=== PATIENT | female | born 1965 | race Caucasian/White ===

== ENCOUNTER 2018-09-04 11:45 | Inpatient (IN) | payer MEDICAID ==
[~2018-09-04] VITALS: Ht 160 cm; Wt 105.2 kg
[~2018-09-04 11:45] MED LIST: ATEN50TA2 PO; HYDR25TA32 PO
[2018-09-04 11:48] VITALS: BP 176/101
--- NOTE | 2018-09-04 12:13 | NUR ---
PT BIB SELF TO THE ED WITH THE CHIEF C/O HEADACHE AND DIZZINESS FOR A WEEK. MOT TAKING ANY MEDS FOR HEADACHE. REPOSTS NAUSEA. DENIES VOMITING OR DIARRHEA. ELEVATED BP NOTED. PT HAS NOT TAKEN BP MEDS TODAY. STATES HEADACHE OF 5/10 AT THIS TIME. BREATHING NORMALLY. DENIES ANY OTHER PROBLEM AT THIS TIME. ER MD AWARE. HX OF HTN, DM, DEPRESSION. TX METOPROLOL, ESCITALOPRAM, ZOLPIDEM, LISINOPRIL.
[2018-09-04] MEDS ORDERED: NACL 0.9% 1,000 ML IV ONE (12:45)
[2018-09-04] MEDS ORDERED: ONDANSETRON 4 MG/2 ML VIAL IVP ONE (12:45)
--- NOTE | 2018-09-04 12:56 | NUR ---
PT TAKEN TO CT.
[2018-09-04 13:19] LABS: HEMATOCRIT 39.1 % (36-48); HEMOGLOBIN 13.4 g/dL (12.0-16.0); MEAN CORPUSCULAR HEMOGLOBIN 30 pg (27-31); MEAN CORPUSCULAR HGB CONC 34 g/dL (33-37); PLATELET COUNT (AUTO) 165 K/uL (140-450); RED BLOOD CELL COUNT(AUTO) 4.55 MIL/uL (4.20-5.40); RED CELL DISTRIBUTION WIDTH 12.3 % (11.6-13.7); WHITE BLOOD COUNT (AUTO) 8.2 K/uL (4.8-10.8)
[2018-09-04 13:21] LABS: APPEARANCE,URINE CLEAR (CLEAR); BILIRUBIN,URINE NEGATIVE (NEGATIVE); BLOOD, URINE 2+ (NEGATIVE); COLOR,URINE YELLOW (YELLOW); LEUKOCYTE ESTERASE ,URINE NEGATIVE (NEGATIVE); NITRITE, URINE NEGATIVE (NEGATIVE); UGLUCOSE 3+ (NEGATIVE)
[2018-09-04 13:27] LABS: ALBUMIN 3.7 g/dL (3.4-5.0); ANION GAP 13.7 (8-16); CARBON DIOXIDE 25.4 mmol/L (21-32); CHOL/HDL RATIO 9.5 (1-4.5); CREATININE 0.9 mg/dL (0.6-1.3); POTASSIUM 4.1 mmol/L (3.5-5.1); TOTAL BILIRUBIN 0.5 mg/dL (0.0-1.0)
[2018-09-04 13:36] LABS: RBC,URINE 11-20 (MOD) /HPF (0-5); WBC,URINE 0-5 /HPF (0-5)
[2018-09-04] MEDS ORDERED: INSULIN REGULAR, HUMAN 100 UNIT/ML VIAL IVP ONE (14:15)
[2018-09-04 14:35] LABS: BASOPHILS # (AUTO) 0.1 K/uL (0.00-0.22); BASOPHILS % (AUTO) 0.7 % (0.0-2.0); EOSINOPHILS # (AUTO) 0.1 K/uL (0-0.4); LYMPHOCYTES # (AUTO) 1.8 K/uL (2.5-16.5); MONOCYTES # (AUTO) 0.4 K/uL (0.8-1.0); NEUTROPHILS # (AUTO) 5.8 K/uL (1.8-7.7); NEUTROPHILS % (AUTO) 71.3 % (42.2-75.2)
[2018-09-04] MEDS ORDERED: ONDANSETRON 4 MG/2 ML VIAL IM/IVP PRN (15:20)
[2018-09-04] MEDS ORDERED: DOCUSATE SODIUM 100 MG GELCAP PO PRN (15:20)
[2018-09-04] MEDS ORDERED: ACETAMINOPHEN 325 MG TAB PO PRN (15:20)
--- NOTE | 2018-09-04 15:35 | NUR ---
REVIWED ABG SAMPLE REPORT WITH DR. NASRA RINCON NO NEW ORDERS
[2018-09-04] MEDS: NACL 0.9% 1,000 ML IV SCH ×2 (15:57→21:56)
[2018-09-04] MEDS ORDERED: ESCI10TA PO (16:04)
[2018-09-04] MEDS ORDERED: LISI-420 PO (16:04)
[2018-09-04] MEDS ORDERED: ZOLP5TAB1 PO (16:04)
[2018-09-04] MEDS ORDERED: METO25TA PO (16:04)
[2018-09-04] MEDS ORDERED: DEXTROSE 50% 50 ML SYR IVP PRN (16:35)
[2018-09-04] MEDS ORDERED: NACL 0.9% 1,500 ML IV ONE (16:40)
[2018-09-04] MEDS ORDERED: MECLIZINE 25 MG TAB PO PRN (16:50)
[2018-09-04 16:57] LABS: PROTHROMBIN TIME 9.6 secs (10.8-13.4)
--- NOTE | 2018-09-04 16:59 | NUR ---
RECEIVED PT FROM ED FROM XOCHITL MARTINEZ. PT ARRIVED IN [facility] WITH TRANSPORT MONITOR. IN NO RESPIRATORY DISTRESS, SYMMETRICAL BREATHING, SKIN COLOR RIGHT FOR ETHNICITY. SKIN DRY, CLEAN, INTACT, PINK. PT WAS ABLE TO AMBULATE FROM [facility] IN [place] TO BED WITH NO PROBLEM. LAST BLOOD SUGAR WAS AT 1524, WAS 382, JUAN SAYS THEY GAVE 8 UNITS OF REGULAR INSULIN VIA IV. PT A/OX4. IV ON RIGHT AC 20G RUNNING AT 100ML/HR. ASKED PT IF SHE HAS TAKEN INSULIN BEFORE, SHE SAYS THAT SHE HAS NOT. PT STATES SHE RECENTLY FOUND OUT THAT SHE HAS DIABETES. PT STATES SHE HAS A FAMILY HX OF DIABETES. SIGN POSTED OUTSIDE DOOR "NPO AFTER MIDNIGHT EXCEPT MEDS". DAUGHTER AT BEDSIDE WITH PT. IV RIGHT AC 20G. TELE MONITOR ON. SINUS RHYTHM, CALL LIGHT WITHIN REACH, WILL CONTINUE TO MONITOR
[2018-09-04 17:00] LABS: BARBITURATE, URINE NEG. ng/ml (NEG <=200); BENZODIAZEPINE, URINE NEG. ng/mL (NEG <=200); CANNABINOID, URINE NEG. ng/mL (NEG <=50); COCAINE, URINE NEG. ng/mL (NEG <=300); OPIATE, URINE NEG. ng/mL (NEG <=2000); PHENCYCLIDINE SCREEN,URINE NEG. ng/mL (NEG <=25)
[2018-09-04] MEDS: metFORMIN 500 MG TAB PO SCH (17:00)
--- NOTE | 2018-09-04 17:00 | NUR ---
Patient will admitted to care of Dr. Cordero . Admited to tele unit. Transferred to the room 119A via rlittle suamico on stable condition. Belongings list completed. Report to XOCHITL Acuna.
[2018-09-04] MEDS ORDERED: ZOLPIDEM 5 MG TAB PO PRN (17:05)
[2018-09-04 17:09] LABS: FREE T4 (FREE THYROXINE) 1.23 ng/dL (0.76-1.46); MAGNESIUM 2.1 mg/dL (1.8-2.4); PHOSPHORUS 3.6 mg/dL (2.5-4.9); THYROID STIMULATING HORMONE 0.59 uIU/mL (0.34-3.74)
[2018-09-04] MEDS ORDERED: METOPROLOL 50 MG TAB PO SCH (17:30)
[2018-09-04 17:31] VITALS: BP 160/80
--- NOTE | 2018-09-04 17:50 | NUR ---
CALLED DR RINCON TO CONFIRMED THAT PT RECEIVED IVF NS 1L BOLUS IN ER, IF DR STILL WANTS TO GIVE 1.[address] RINCON SAID YES, TO GIVE.
--- NOTE | 2018-09-04 19:25 | NUR ---
RECEIVED REPORT FROM AM SHIFT FOR CONTINUITY OF CARE, PT IN STABLE CONDITION.
--- NOTE | 2018-09-04 19:25 | NUR ---
ENDORSED PT TO [employer] RN. PT IN STABLE CONDITION.
[2018-09-04 20:00] VITALS: BP 127/83
[2018-09-04] MEDS ORDERED: INSULIN LANTUS 100 UNITS/ML 10 ML VIAL SUBQ SCH (21:00)
--- NOTE | 2018-09-04 21:00 | NUR ---
PT IN BED AOX4 AND IS [place] CITIZEN SPEAKING. PT IN LOW BED WITH SIDE RAILS UP X2 AND HOB UP 45%. PT HAD NO C/O OF PAIN OR DISTRESS NOTED. IV SITE RAC 20G INTACT AND FLUSHED PATENT. N/S BOLUS FINISHED AND PT STARTED N/S FLUIDS AT 200MLS/HR. V/S FOLLOWS T 98.4 P 64 R 18 B/P 127/83 02 95% ON ROOM AIR. PT GIVEN LIPITOR FOR INCREASED CHOLESTEROL, SCHEDULED WELL HEPARIN FOR DVT PREVENTION. PT F/S IS 338 AND WAS GIVEN 8 UNITS OF HUMALOG COVERAGE AND ORDERED LANTUS AT 20 UNITS. MEDICATION INFORMATION AND AND EDUCATION PROVIDED THROUGH SEPTIC TANK CLEANER. PT VERBALIZED UNDERSTANDING.
[2018-09-04] MEDS: BLOOD GLUCOSE MONITORING 1 DEV DEV FS SCH (21:17)
[2018-09-04] MEDS: ATORVASTATIN 20 MG TAB PO SCH (21:18)
[2018-09-04] MEDS: INSULIN LISPRO SLIDING SCALE 100 UNITS/ML VIAL SUBQ PRN (21:39)
[2018-09-05] VITALS: BP 156/70
[2018-09-05] MEDS: HYDROcodone/APAP 7.5/325 MG 1 TAB PO PRN ×4 (00:45→20:22)
--- NOTE | 2018-09-05 00:45 | NUR ---
PT IN BED SHE IS RESTING WITH EYES CLOSED BUT AROUSABLE TO NAME. PT C/O OF HEADACHE 10/23, GIVEN PO/PRN NORCO. PT ALSO C/O OF INSOMNIA AND REQUESTED A PILL FOR SLEEPING. PT GIVEN 5MG AMBIEN PO/PRN FOR SLEEP AID. WILL CONTINUE TO MONITOR PT FOR PAIN AND SLEEPLESSNESS. IV SITE INTACT AND RUNNING N/S ORDERED. ALL REQUESTED NEEDS ATTENDED AND CALL HARE IN REACH.
--- NOTE | 2018-09-05 02:20 | NUR ---
PT IN BED ASLEEP NO S/S OF PAIN OR DISTRESS NOTED. N/S RUNNING AT 200MLS AN HOUR ORDERED.
[2018-09-05] MEDS: NACL 0.9% 1,000 ML IV SCH ×4 (03:43→21:03)
[2018-09-05 04:00] VITALS: BP 131/67
--- NOTE | 2018-09-05 05:20 | NUR ---
PT IN BED RESTING WITH EYES CLOSED BUT AROUSABLE TO NAME. PT C/O HEADACHE AND WAS GIVEN PO/PRN NORCO, WILL MONITOR FOR EFFECT. V/S FOLLOWS T 97.8 P 62 R 18 B/P 131/67 02 94% ON ROOM AIR.
[2018-09-05 06:13] LABS: T4 (THYROXINE) 7.8 ug/dL (4.5-12.0)
[2018-09-05 06:24] LABS: ANION GAP 8.3 (8-16); CARBON DIOXIDE 28.3 mmol/L (21-32); CREATININE 0.7 mg/dL (0.6-1.3); POTASSIUM 3.6 mmol/L (3.5-5.1)
[2018-09-05] MEDS: BLOOD GLUCOSE MONITORING 1 DEV DEV FS SCH ×4 (06:24→20:25)
[2018-09-05] MEDS ORDERED: NACL 0.9% 1,000 ML IV ONE (06:25)
[2018-09-05] MEDS ORDERED: INSULIN LANTUS 100 UNITS/ML 10 ML VIAL SUBQ SCH ×4 (06:30→21:00)
[2018-09-05] MEDS: INSULIN LISPRO SLIDING SCALE 100 UNITS/ML VIAL SUBQ PRN ×4 (06:33→20:32)
[2018-09-05 06:38] LABS: BASOPHILS % (AUTO) 0.3 % (0.0-2.0); EOSINOPHILS # (AUTO) 0.2 K/uL (0-0.4); EOSINOPHILS % (AUTO) 2.5 % (0.0-4.0); HEMATOCRIT 35.7 % (36-48); HEMOGLOBIN 12.2 g/dL (12.0-16.0); LYMPHOCYTES # (AUTO) 2.2 K/uL (2.5-16.5); LYMPHOCYTES % (AUTO) 33.3 % (20.5-51.1); MEAN CORPUSCULAR HEMOGLOBIN 30 pg (27-31); MEAN CORPUSCULAR HGB CONC 34 g/dL (33-37); MEAN CORPUSCULAR VOLUME 86.6 fL (80-94); MONOCYTES # (AUTO) 0.4 K/uL (0.8-1.0); MONOCYTES % (AUTO) 5.7 % (1.7-9.3); NEUTROPHILS # (AUTO) 3.8 K/uL (1.8-7.7); NEUTROPHILS % (AUTO) 58.2 % (42.2-75.2); PLATELET COUNT (AUTO) 159 K/uL (140-450); RED BLOOD CELL COUNT(AUTO) 4.12 MIL/uL (4.20-5.40); RED CELL DISTRIBUTION WIDTH 12.5 % (11.6-13.7); WHITE BLOOD COUNT (AUTO) 6.6 K/uL (4.8-10.8)
--- NOTE | 2018-09-05 06:58 | NUR ---
DR. FIELDS IN TO SEE PT. NEW ORDERS NOTED FOR BOLUS IV NS OPEN WIDE AND 5 MORE UNITS OF LANTUS, PT MAY EAT IN THE AM.
--- NOTE | 2018-09-05 07:15 | NUR ---
CARE TO BE ENDORSED TO NEXT SHIFT, PT IN STABLE CONDITION.
--- NOTE | 2018-09-05 07:16 | NUR ---
GOT BEDSIDE REPORT FROM XOCHITL DRAPER. PATIENT ON TELE MONITOR AND STANDARD PRECAUTIONS IN PLACE. PATIENT AAOX4 AND ON ROOM AIR, NO DISTRESS NOTED. FALL RISK PROTOCOL IN PLACE. SKIN INTACT. ABLE TO AMBULATE WITHOUT ASSISTANCE AND CONTINENT. IV ON R AC 20 G INFUSING NS AT 200. IV ASYMPTOMATIC PATENT AND INTACT. BED IN LOW POSITION, CALL LIGHT WITHIN REACH, SIDE RAILS X2 UP
[2018-09-05 08:00] VITALS: BP 145/87
[2018-09-05] MEDS: metFORMIN 500 MG TAB PO SCH ×2 (08:14→16:00)
[2018-09-05] MEDS: ESCITALOPRAM 20 MG TAB PO SCH (08:16)
[2018-09-05] MEDS: METOPROLOL SUCCINATE 50 MG TABER PO SCH (08:17)
--- NOTE | 2018-09-05 08:18 | NUR ---
PATIENT HAS BEEN SCREENED AND CATEGORIZED HIGH NUTRITION RISK. PATIENT WILL BE SEEN WITHIN 1-2 DAYS OF ADMISSION. 09/05/18-09/06/[address]
[2018-09-05] MEDS: LISINOPRIL 20 MG TAB PO SCH (08:20)
--- NOTE | 2018-09-05 08:31 | NUR ---
ADMINISTERED SCHEDULED MEDS. PATIENT TOLERATED WELL
--- NOTE | 2018-09-05 10:02 | NUR ---
ADMINISTERED NORCO PRN FOR 4/10 PAIN
[2018-09-05 12:00] VITALS: BP 120/72
--- NOTE | 2018-09-05 12:00 | NUR ---
BLOOD SUGAR 287, WILL ADMINISTER 6 UNITS OF INSULIN PER SLIDING SCALE
--- NOTE | 2018-09-05 14:50 | NUR ---
09/05/18 RD INITIAL ASSESSMENT COMPLETED PLEASE REFER TO NUTRITION ASSESSMENT UNDER CARE ACTIVITY FOR ESTIMATED NUTRITIONAL NEEDS. [facility]. [facility]OL[facility]ATED 2. RD PROVIDED NUTRITION EDUCATION FOR DIABETES 3. RD TO FOLLOW-UP 5-7 DAYS, LOW RISK [facility] [address]
--- NOTE | 2018-09-05 14:54 | NUR ---
PATIENT SLEEPING, ON ROOM AIR, NO DISTRESS NOTED
[2018-09-05 16:00] VITALS: BP 112/64
--- NOTE | 2018-09-05 16:02 | NUR ---
BLOOD SUGAR OF 286, ADMINISTERED 6 UNITS OF INSULIN, PATIENT TOLERATED WELL
--- NOTE | 2018-09-05 18:07 | NUR ---
PATIENT EATING DINNER ON SIDE OF BED, ON ROOM AIR, NO DISTRESS NOTED
--- NOTE | 2018-09-05 19:27 | NUR ---
GAVE BEDSIDE REPORT TO XOCHITL HINOJOSA. PATIENT ENDORSED IN STABLE CONDITION
--- NOTE | 2018-09-05 19:52 | NUR ---
RECEIVED FROM AM RN IN BED LAYING DOWN WITH FAMILY VISITING. GOOD AFFECT. NO COMPLAINTS AT THIS TIME. CALL LIGHT WITH IN REACH. CARE PLANS FOR THE NIGHT DISCUSSED WITH THEM. IVF SITE INTACT AND NO INFILTRATION.
[2018-09-05 20:20] VITALS: BP 126/68
[2018-09-05] MEDS: ATORVASTATIN 20 MG TAB PO SCH (20:23)
--- NOTE | 2018-09-06 00:49 | NUR ---
SLEEPING WELL AT THIS TIME. WOKE UP EASILY WHEN VITAL SIGNS TAKEN. NO COMPLAINTS DONE.
[2018-09-06 00:59] VITALS: BP 128/84
[2018-09-06] MEDS: NACL 0.9% 1,000 ML IV SCH ×2 (01:20→11:04)
--- NOTE | 2018-09-06 03:00 | NUR ---
PT. AWAKE AND WENT RESTROOM TO URINATE. INDEPENDENT. ABLE TO VERBALIZE NEEDS WELL IN RUSSIAN. ABLE TO USE CALL LIGHT FOR HELP. A/O X 4. ROM X 4. NO S/S OF HYPO/HYPERGLYCEMIA.
[2018-09-06] MEDS: BLOOD GLUCOSE MONITORING 1 DEV DEV FS SCH ×2 (05:27→12:29)
[2018-09-06] MEDS: INSULIN LISPRO SLIDING SCALE 100 UNITS/ML VIAL SUBQ PRN ×2 (05:29→12:38)
--- NOTE | 2018-09-06 06:53 | NUR ---
SLEPT WELL THIS SHIFT. ABLE TO VERBALIZE NEEDS WELL. NO COMPLAINTS DONE OF PAIN AT THIS TIME. A/O X 4. WILL ENDORSE TO THE NEXT AM RN FOR CONTINUITY OF CARE.
--- NOTE | 2018-09-06 07:05 | NUR ---
GOT BEDSIDE REPORT FROM XOCHITL HINOJOSA. PATIENT ON MED SURGE AND STANDARD PRECAUTIONS IN PLACE. PATIENT AAOX4 AND ON ROOM AIR, NO DISTRESS NOTED. SKIN INTACT. PATIENT AMBULATORY AND CONTINENT. IV ON R AC 20 G INFUSING NS AT 150, ASYMPTOMATIC PATENT AND INTACT. BED IN LOW POSITION, CALL LIGHT WITHIN REACH, SIDE RAILS X2 UP
[2018-09-06 07:44] LABS: BASOPHILS % (AUTO) 0.4 % (0.0-2.0); EOSINOPHILS # (AUTO) 0.2 K/uL (0-0.4); EOSINOPHILS % (AUTO) 2.8 % (0.0-4.0); HEMATOCRIT 36.7 % (36-48); HEMOGLOBIN 12.6 g/dL (12.0-16.0); LYMPHOCYTES # (AUTO) 1.7 K/uL (2.5-16.5); LYMPHOCYTES % (AUTO) 26.3 % (20.5-51.1); MEAN CORPUSCULAR HEMOGLOBIN 30 pg (27-31); MEAN CORPUSCULAR HGB CONC 34 g/dL (33-37); MONOCYTES # (AUTO) 0.3 K/uL (0.8-1.0); MONOCYTES % (AUTO) 5.5 % (1.7-9.3); NEUTROPHILS # (AUTO) 4.1 K/uL (1.8-7.7); PLATELET COUNT (AUTO) 164 K/uL (140-450); RED BLOOD CELL COUNT(AUTO) 4.27 MIL/uL (4.20-5.40); RED CELL DISTRIBUTION WIDTH 12.7 % (11.6-13.7); WHITE BLOOD COUNT (AUTO) 6.3 K/uL (4.8-10.8)
[2018-09-06] MEDS: metFORMIN 500 MG TAB PO SCH (08:00)
[2018-09-06 08:16] LABS: ANION GAP 10.9 (8-16); CARBON DIOXIDE 27.2 mmol/L (21-32); CREATININE 0.6 mg/dL (0.6-1.3); POTASSIUM 3.1 mmol/L (3.5-5.1)
[2018-09-06] MEDS: ESCITALOPRAM 20 MG TAB PO SCH (09:29)
[2018-09-06] MEDS: METOPROLOL SUCCINATE 50 MG TABER PO SCH (09:29)
[2018-09-06] MEDS: LISINOPRIL 20 MG TAB PO SCH (09:30)
--- NOTE | 2018-09-06 09:37 | NUR ---
ADMINISTERED SCHEDULED MEDS. PATIENT TOLERATED WELL
--- NOTE | 2018-09-06 11:55 | NUR ---
PATIENT SLEEPING, ON ROOM AIR, NO DISTRESS NOTED
[2018-09-06] MEDS ORDERED: METO100T14 PO (12:31)
[2018-09-06] MEDS ORDERED: INSU100S22 SUBQ (12:36)
[2018-09-06] MEDS ORDERED: ASPI-1677 PO (12:36)
[2018-09-06] MEDS ORDERED: METF1000 PO (12:36)
[2018-09-06] MEDS ORDERED: ATOR20TA PO (12:36)
[2018-09-06] MEDS ORDERED: INSU-1163 SQ (12:45)
[2018-09-06] MEDS ORDERED: PNEUMOCOCCAL VACCINE 23 MCG/0.5 ML VIAL IMVAC SCH (14:20)
--- NOTE | 2018-09-06 14:30 | NUR ---
GAVE BEDSIDE REPORT TO XOCHITL MARTIN. PATIENT ENDORSED IN STABLE CONDITION. DISCHARGE PAPERWORK PRINTED BEFORE REPORT GIVEN TO MARIO. HE IS AWARE PATIENT WANTS PNA VACCINE AT DISCHARGE
--- NOTE | 2018-09-06 15:24 | NUR ---
ADMINISTERED PNA VACCINE TO PT ORDERED. PROVIDED WITH ALL DISCHARGE INSTRUCTION AND THE PRESCRIPTION PROVIDED. EXPLAINED THE MEDS THAT WAS PRESCRIBED TO PT AND ALSO INFORMED TO CONSULT WITH PHARMACY MORE ABOUT THE DRUGS WHILE PICKING UP THE MEDS. VERBALIZED UNDERSTANDING. FAMILY AT THE BEDSIDE. PT DISCHARGED HOME WITH SELF CARE.
--- NOTE | 2018-09-06 15:30 | NUR ---
PT DISCHARGED TO HOME WITH SELF CARE. PT WENT HOME WITH FAMILY MEMBER. PT STABLE AND WALKED OUT OF HOSPITAL BY HERSELF.
== END 2018-09-06 15:30 | disposition home or self-care (01) | DRG 420 ==
LOC: MED 11:45 → MTU 15:39
PROVIDERS: ADMIT General Practice; ATTEND General Practice
PROC: 3E0234Z Introduction of Serum, Toxoid and Vaccine into Muscle, Percutaneous Approach (ICD-10-PCS; principal; 2018-09-06)
DX: E11.00 Type 2 diabetes mellitus with hyperosmolarity without nonketotic hyperglycemic-hyperosmolar coma (NKHHC) (principal); G93.41 Metabolic encephalopathy; E66.01 Morbid (severe) obesity due to excess calories; E83.51 Hypocalcemia; E87.8 Other disorders of electrolyte and fluid balance, not elsewhere classified; E11.65 Type 2 diabetes mellitus with hyperglycemia; E87.1 Hypo-osmolality and hyponatremia; I16.0 Hypertensive urgency; I10 Essential (primary) hypertension; E78.5 Hyperlipidemia, unspecified; K21.9 Gastro-esophageal reflux disease without esophagitis; G47.9 Sleep disorder, unspecified; R31.9 Hematuria, unspecified; E78.2 Mixed hyperlipidemia; F41.9 Anxiety disorder, unspecified; F32.9 Major depressive disorder, single episode, unspecified; Z68.41 Body mass index [BMI] 40.0-44.9, adult; Z98.51 Tubal ligation status; Z23 Encounter for immunization
CPT/HCPCS: 36415; 36600; 70450; 71045; 80048; 80053; 80305; 81001; 82150; 82803; 82948; 83036; 83690; 83735; 83880; 84100; 84436; 84439; 84443; 84479; 84484; 85025; 85610; 85730; 87081; 90732; 93005; 93880; 93925; 93970; 96361; 96374; 97161-GP; 99285; J1644; J1815; J2405; J7030; Q0092

== ENCOUNTER 2019-07-09 08:59 | Emergency (ER) | payer MEDICAID ==
[~2019-07-09] VITALS: Ht 160 cm; Wt 105.7 kg
[~2019-07-09 08:59] MED LIST changes: +ASPI-1884 PO; -ATEN50TA2 PO; +ATOR20TA PO; +ESCI10TA PO; -HYDR25TA32 PO; +INSU-1163 SQ; +INSU100S22 SUBQ; +LISI-420 PO; +METF1000 PO; +METO100T14 PO; +ZOLP5TAB1 PO
[2019-07-09 09:09] VITALS: BP 201/121
--- NOTE | 2019-07-09 09:21 | NUR ---
PT TO BED 9
--- NOTE | 2019-07-09 09:39 | NUR ---
DR HOLMAN AT BEDSIDE
--- NOTE | 2019-07-09 09:40 | NUR ---
Dr. Mcdermott is evaluating the patient at bedside.
--- NOTE | 2019-07-09 09:42 | NUR ---
PT ON 3 LEAD ECG AND PULSE OX.
--- NOTE | 2019-07-09 09:53 | NUR ---
Radames ramirez in [facility] - 07/09/19 at 0953 by [email or web address] RECTAL TEMP 99.4
--- NOTE | 2019-07-09 10:01 | NUR ---
ACCU CHECK 244
--- NOTE | 2019-07-09 10:12 | NUR ---
54 Y/ F PRESENTS TO ED FOR ALLERGIC REACITION X 5 DAY. ERYTHEMA ON B CHEEKS, L SIDE IS SLIGHTLY MORE REDDENED. PT REPORTS SHE CHANGED HER LAUNDRY DETERGENT X 3 MONTHS AGO. REPORTS RASH ON UPPER BACK AND GLUTEAL AREA. REPORTS RASH IS ITHCY. SLIGHT RELIEF AFTER TAKING BENADRYL 3 TIMES A DAY FOR 5 DAY. DENEIS ANY DIFFICULTY BREATHING, SOB, OR THROAT IRRITATION. RR EVEN AND UNLABORED , O2 SAT 99 HX- HTN, DM
--- NOTE | 2019-07-09 11:15 | NUR ---
Patient discharged with v/s stable. Written and verbal after care instructions given and explained. Patient alert, oriented and verbalized understanding of instructions. Ambulatory with steady gait. All questions addressed prior to discharge. ID band removed. Patient advised to follow up with PMD. Rx of METOPROLOL AND METFORMIN given. Patient educated on indication of medication including possible reaction and side effects. Opportunity to ask questions provided and answered. PT INSTRUCTED TO SEE PCP FOR INSULIN.
[2019-07-09 11:16] VITALS: BP 158/85
== END 2019-07-09 11:15 | disposition home or self-care (01) ==
LOC: MED 08:59
DX: R21 Rash and other nonspecific skin eruption (principal); E11.9 Type 2 diabetes mellitus without complications; I10 Essential (primary) hypertension; Z98.890 Other specified postprocedural states; Z79.4 Long term (current) use of insulin; Z79.82 Long term (current) use of aspirin; Z79.899 Other long term (current) drug therapy
CPT/HCPCS: 81002; 82948; 99283